=== PATIENT | female | born 1995 | race African-American/Black ===

== ENCOUNTER 2017-04-07 11:26 | Emergency (ER) | payer OTHER ==
[~2017-04-07] VITALS: Ht 168.9 cm; Wt 54.3 kg
[2017-04-07 11:33] VITALS: TEMP 36.7; O2SAT 95; Ht 168.9 cm; Wt 54.3 kg
[2017-04-07] MEDS ORDERED: ACETAMINOPHEN 500 MG TAB PO STA (11:48)
[2017-04-07 12:04] LABS: BASO % 0.3 %; BASO ABS # 0.02 K/uL (0-0.2); COMPLETE YES; EOS % 1.9 %; HEMATOCRIT 35.2 % (37-47); IG% 0.2 %; LYMPH % 35.8 %; LYMPH ABS # 2.07 K/uL (1.2-3.4); MEAN CORPUSCULAR HEMOGLOBIN 31.3 pg (25-34); MEAN CORPUSCULAR HGB CONC 34.4 g/dl (32-36); MEAN PLATELET VOLUME 9.3 fL (7.4-10.4); MONO % 7.8 %; PLATELET COUNT 306 K/uL (130-400); RED BLOOD COUNT 3.87 M/uL (4.2-5.4); WHITE BLOOD COUNT 5.78 K/uL (4.8-10.8)
[2017-04-07 12:14] LABS: PROTHROMBIN TIME (PATIENT) 11.1 SECONDS (9.0-12.0)
[2017-04-07] MEDS ORDERED: SODIUM CHLORIDE 0.9% 1000ML 1,000 ML IV STA (12:14)
--- NOTE | 2017-04-07 12:17 | EMERGENCY ROOM VISIT NOTE ---
History First contact with patient: 11:39 Chief Complaint: ABDOMINAL PAIN Stated Complaint: STOMACH PAIN Nursing Triage Summary: Ambulates to room. Reports vomiting LLQ abd pain, radiating to the back. States started last evening. Denies hx of sickle cell; states brother has it. History of Present Illness The patient is a 21 year old female who presents to the Emergency Room via private vehicle with complaints of "stomach pain". The patient states that she has been coughing 1 week, and last night around 11 PM she began vomiting. She states she is coughing so hard that she is vomiting, and is lightheaded. She states she feels as though she is going to faint. She took DayQuil, without relief. She states that her back also began her, and the left upper quadrant. She notes that it is worse with ambulation. She states that she cannot stand up straight. She denies any chest pain, shortness of breath, fevers or chills. Review of Systems A complete 10-point Review of Systems was discussed with the patient, with pertinent positives and negatives listed in the History of Present Illness. All remaining Review of Systems questions can be considered negative unless otherwise specified. Past Medical/Surgical History No pertinent Family History Brother with Sickle Cell Social History Smoking Status: Never Smoker Pt. lives locally and is a [employer] student Current/Historical Medications Scheduled Cephalexin Monohydrate (Keflex), 500 MG PO TID Physical Exam Vital Signs Date Time Temp Pulse Resp B/P (MAP) Pulse Ox O2 Delivery O2 Flow Rate FiO2 04/07/17 14:40 70 14 108/73 04/07/17 13:30 84 15 110/70 Room Air 04/07/17 12:58 74 04/07/17 12:17 Room Air 04/07/17 11:33 36.7 80 18 113/70 95 Room Air Physical Exam VITAL SIGNS - Vital signs and nursing notes were reviewed. Stable. GENERAL - 21-year-old female appearing her stated age who is in no acute distress. Communicates well with provider and answers questions appropriately. SKIN - Without rashes. HEAD - NC/AT. EYES - PERRL with EOMI bilaterally. Sclera anicteric. EARS - No deformities of external structures noted on gross examination bilaterally. NOSE - Midline and without cyanosis. No epistaxis or purulent drainage noted. . MOUTH/OROPHARYNX - Without perioral cyanosis. Buccal mucosa pink and moist and without leukoplakia. Tongue midline with equal elevation of palate bilaterally. No tonsillar hypertrophy, erythema, or exudates noted. . NECK - Neck with FROM. No meningismus. LUNGS - Chest wall symmetric without accessory muscle use, intercostals retractions, or central cyanosis. Normal vesicular breath sounds CTA B/L. No wheezes, rales, or rhonchi appreciated. CARDIAC - RRR with S1/S2. No murmur, rubs, or gallops appreciated. ABDOMEN - Abdominal contour normal without pulsations or visible masses. BS normoactive all four quadrants. There is left upper quadrant/left anterior inferior rib tenderness. No palpable masses, hepatosplenomegaly, or ascites noted. EXTREMITIES - No clubbing or peripheral cyanosis. No pretibial edema present. + 5/5 strength noted in UE/LE bilaterally. NEUROLOGIC - Cranial nerves II through XII grossly intact. Sensory intact to light touch throughout. PSYCH - A&O, and cooperates fully with examiner. Pt is very pleasant and interacts well with examiner. Medical Decision & Procedures ER Provider Diagnostic Interpretation: CHEST AND ABDOMEN 2 VIEWS HISTORY: Left upper quadrant abdominal pain, emesis COMPARISON: None. FINDINGS: The lungs are clear. The cardiomediastinal silhouette is within normal limits. There is no pneumoperitoneum or pneumatosis. The bowel gas pattern is unremarkable. No evidence for bowel obstruction. No pathologic calcifications. Posterior fusion defect at S1. Moderate well-formed stool seen within the colon. An intrauterine device is seen within the mid pelvis. IMPRESSION: No acute cardiopulmonary process. No evidence for bowel obstruction. Moderate well-formed stool within the colon. Electronically signed by: Michael Fields M.D. 04/07/2017 12:51 PM Dictated Date/Time: 04/07/2017 12:48 PM ULTRASOUND LEFT UPPER QUADRANT ABDOMEN CLINICAL HISTORY: Left upper quadrant abdominal pain. Vomiting. COMPARISON STUDY: Abdominal radiographs dated 04/07/2017. TECHNIQUE: Real-time, grayscale, and color flow sonography of the left upper quadrant of the abdomen is performed. Images are reviewed in the transverse and longitudinal planes. FINDINGS: Spleen: The spleen is normal in size and homogeneous in echotexture measuring 8.9 cm in length. No perisplenic fluid is seen. Left kidney: Survey images of the left kidney showed normal renal size and echotexture. There is no hydronephrosis. No shadowing calculi are identified. No left-sided perinephric fluid is seen. IMPRESSION: Unremarkable sonographic assessment of the left upper quadrant. Electronically signed by: Matt Vázquez M.D. 04/07/2017 12:45 PM Dictated Date/Time: 04/07/2017 12:43 PM Laboratory Results 04/07/17 11:50 Red Blood Count 3.87, Mean Corpuscular Volume 91.0, Mean Corpuscular Hemoglobin 31.3, Mean Corpuscular Hemoglobin Concent 34.4, Mean Platelet Volume 9.3, Neutrophils (%) (Auto) 54.0, Lymphocytes (%) (Auto) 35.8, Monocytes (%) (Auto) 7.8, Eosinophils (%) (Auto) 1.9, Basophils (%) (Auto) 0.3, Neutrophils # (Auto) 3.12, Lymphocytes # (Auto) 2.07, Monocytes # (Auto) 0.45, Eosinophils # (Auto) 0.11, Basophils # (Auto) 0.02 04/07/17 11:50 Test 04/07/17 11:48 04/07/17 11:50 04/07/17 12:00 Urine Test NEG (NEG) White Blood Count 5.78 K/uL (4.8-10.8) Red Blood Count 3.87 M/uL (4.2-5.4) Hemoglobin 12.1 g/dL (12.0-16.0) Hematocrit 35.2 % (37-47) Mean Corpuscular Volume 91.0 fL (80-100) Mean Corpuscular Hemoglobin 31.3 pg (25-34) Mean Corpuscular Hemoglobin Concent 34.4 g/dl (32-36) Platelet Count 306 K/uL (130-400) Mean Platelet Volume 9.3 fL (7.4-10.4) Neutrophils (%) (Auto) 54.0 % Lymphocytes (%) (Auto) 35.8 % Monocytes (%) (Auto) 7.8 % Eosinophils (%) (Auto) 1.9 % Basophils (%) (Auto) 0.3 % Neutrophils # (Auto) 3.12 K/uL (1.4-6.5) Lymphocytes # (Auto) 2.07 K/uL (1.2-3.4) Monocytes # (Auto) 0.45 K/uL (0.11-0.59) Eosinophils # (Auto) 0.11 K/uL (0-0.5) Basophils # (Auto) 0.02 K/uL (0-0.2) RDW Standard Deviation 40.5 fL (36.4-46.3) RDW Coefficient of Variation 12.1 % (11.5-14.5) Immature Granulocyte % (Auto) 0.2 % Immature Granulocyte # (Auto) 0.01 K/uL (0.00-0.02) Prothrombin Time 11.1 SECONDS (9.0-12.0) Prothromb Time International Ratio 1.0 (0.9-1.1) Activated Partial Thromboplast Time 24.9 SECONDS (21.0-31.0) Partial Thromboplastin Ratio 1.0 Anion Gap 5.0 mmol/L (3-11) Est Creatinine Clear Calc Drug Dose 109.0 ml/min Estimated GFR () 143.5 Estimated GFR (Non- 123.9 BUN/Creatinine Ratio 11.3 (10-20) Calcium Level 8.4 mg/dl (8.5-10.1) Magnesium Level 2.1 mg/dl (1.8-2.4) Total Bilirubin 0.5 mg/dl (0.2-1) Aspartate Amino Transf (AST/SGOT) 26 U/L (15-37) Alanine Aminotransferase (ALT/SGPT) 22 U/L (12-78) Alkaline Phosphatase 70 U/L (45-117) Total Creatine Kinase 222 U/L (26-192) Creatine Kinase MB 0.9 ng/ml (0.5-3.6) Creatine Kinase MB Ratio 0.4 (0-3.0) Troponin I < 0.015 ng/ml (0-0.045) Total Protein 7.9 gm/dl (6.4-8.2) Albumin 3.9 gm/dl (3.4-5.0) Globulin 4.0 gm/dl (2.5-4.0) Albumin/Globulin Ratio 1.0 (0.9-2) Lipase 101 U/L (73-393) Thyroid Stimulating Hormone (TSH) 0.478 uIu/ml (0.300-4.500) Monoscreen NEG (NEG) Urine Color YELLOW Urine Appearance CLOUDY (CLEAR) Urine pH 7.0 (4.5-7.5) Urine Specific [place] 1.029 (1.000-1.030) Urine Protein NEG (NEG) Urine Glucose (UA) NEG (NEG) Urine Ketones NEG (NEG) Urine Occult Blood NEG (NEG) Urine Nitrite NEG (NEG) Urine Bilirubin NEG (NEG) Urine Urobilinogen NEG (NEG) Urine Leukocyte Esterase SMALL (NEG) Urine WBC (Auto) 5-10 /hpf (0-5) Urine RBC (Auto) 0-4 /hpf (0-4) Urine Hyaline Casts (Auto) 10-30 /lpf (0-5) Urine Epithelial Cells (Auto) >30 /lpf (0-5) Urine Bacteria (Auto) 1+ (NEG) Medications Administered Medications (Trade) Dose Ordered Sig/Loren Route Start Time Stop Time Status Last Admin Dose Admin Acetaminophen (Tylenol Tab) 500 mg NOW STAT PO 04/07/17 11:48 04/07/17 11:50 DC 04/07/17 12:28 500 MG Sodium Chloride 1,000 ml @ 999 mls/hr Q1H1M STAT IV 04/07/17 12:14 04/07/17 13:14 DC 04/07/17 12:29 999 MLS/HR Medical Decision Patient was seen and evaluated as above. She presents to us today with left upper quadrant abdominal pain, as well as vomiting after she coughs. She's had a cough for the past few weeks. She denies any fevers, chills, chest pain or shortness of breath. Her vital signs are stable. There appear to be no risk factors for pulmonary embolism. At that EKG reveals normal sinus rhythm. No ectopy or ischemic change. test was negative. Chest and abdomen x- ray were negative. Left upper quadrant ultrasound was negative. Spleen was normal size. CBC reveals no concerning leukocytosis, slight anemia noted. Coags normal. Patient's metabolic panel reveals hypocalcemia and hypo-killing him. Total CK was slightly elevated at 222. She was given normal saline. She was encouraged to eat foods high in potassium such as bananas and oranges. Lipase and TSH are negative. Urine feels potential UTI. No nitrates. [place] screen was negative. At this time she appears stable for outpatient management. She is to follow-up with [facility] for further evaluation and management. She was educated upon which to return, had questions answered prior to discharge, and was discharged home in good condition. I did elect to provide her a prescription for Keflex in the event that she may be experiencing a UTI. Culture pending. In the evaluation and treatment of this patient the following differential diagnoses were entertained: RI, PE, UTI, pyelonephritis, splenic infarct, among others. Impression Primary Impression: Left upper quadrant pain Departure Information Dispostion Home / Self-Care Condition GOOD Prescriptions Cephalexin Monohydrate (Keflex) 500 Mg Cap 500 MG PO TID for 7 Days, #21 CAP Prov: Tone Gill PA-C 04/07/17 Referrals No Doctor, Assigned (PCP) [facility] Patient Instructions [facility] Additional Instructions You have been treated in the Emergency Department for a Urinary Tract Infection (UTI) and abdominal pain. You have been prescribed Keflex to be taken every 8 hours for 7 days. This is an antibiotic. All antibiotics have the potential to cause diarrhea. Stop this medication and contact a medical provider if you were to develop any significant adverse side effects including: wheezing, shortness of breath, passing out, vomiting, or a diffuse rash. Always take antibiotics as directed and COMPLETE the ENTIRE course regardless of the improvement of your symptoms. For pain control, you can use the following [id number] medicines: - Regular strength (325mg/tab) Tylenol (acetaminophen) 2 tabs every 4-6 hours as needed. Do not exceed 12 tablets in a 24 hour period. Avoid taking more than 3 grams (3000 mg) of Tylenol per day. This includes any other sources of acetaminophen you may take on a regular basis. - Regular strength (200 mg/tab) Advil (ibuprofen) 1-2 tabs every 4-6 hours as needed. Do not exceed a dose of 3200 mg per day. Return to the emergency department if your symptoms worsen despite treatment course outlined above. Drink plenty of water and stay well hydrated. As with any trip to the Emergency Department, you should follow-up with your Primary Care Provider from today's visit. Return to the emergency department if your symptoms persist despite treatment plan outlined above or if the following symptoms occur: increased fevers, chills , low back pain, nausea/vomiting, or blood in your urine.
[2017-04-07 12:21] LABS: ALT/SGPT 22 U/L (12-78); BLOOD UREA NITROGEN 8 mg/dl (7-18); BUN/CREATININE RATIO 11.3 (10-20); CALCIUM 8.4 mg/dl (8.5-10.1); CARBON DIOXIDE 28 mmol/L (21-32); CHLORIDE 107 mmol/L (98-107); GLUCOSE 86 mg/dl (70-99); MAGNESIUM 2.1 mg/dl (1.8-2.4); POTASSIUM 3.4 mmol/L (3.5-5.1); SODIUM 140 mmol/L (136-145)
[2017-04-07 12:26] LABS: ALKALINE PHOSPHATASE 70 U/L (45-117); AST/SGOT 26 U/L (15-37); CKMB/CK RATIO 0.4 (0-3.0)
[2017-04-07 12:35] LABS: URINE APPEARANCE CLOUDY (CLEAR); URINE BILIRUBIN NEG (NEG); URINE COLOR YELLOW; URINE EPITHELIAL CELL AUTO >30 /lpf (0-5); URINE NITRITE NEG (NEG); URINE SPECIFIC GRAVITY 1.029 (1.000-1.030); UROBILINOGEN NEG (NEG); ZZUR CULT IF INDIC CLEAN CATCH YES
[2017-04-07 12:39] LABS: MANUAL MICROSCOPIC REQUIRED? NO; REVIEW REQ? NO
--- NOTE | 2017-04-07 12:46 | DIAGNOSTIC IMAGING REPORT ---
ULTRASOUND LEFT UPPER QUADRANT ABDOMEN CLINICAL HISTORY: Left upper quadrant abdominal pain. Vomiting. COMPARISON STUDY: Abdominal radiographs dated 04/07/2017. TECHNIQUE: Real-time, grayscale, and color flow sonography of the left upper quadrant of the abdomen is performed. Images are reviewed in the transverse and longitudinal planes. FINDINGS: Spleen: The spleen is normal in size and homogeneous in echotexture measuring 8.9 cm in length. No perisplenic fluid is seen. Left kidney: Survey images of the left kidney showed normal renal size and echotexture. There is no hydronephrosis. No shadowing calculi are identified. No left-sided perinephric fluid is seen. IMPRESSION: Unremarkable sonographic assessment of the left upper quadrant. Electronically signed by: Matt Vázquez M.D. 04/07/2017 12:45 PM Dictated Date/Time: 04/07/2017 12:43 PM
--- NOTE | 2017-04-07 12:52 | DIAGNOSTIC IMAGING REPORT ---
CHEST AND ABDOMEN 2 VIEWS HISTORY: Left upper quadrant abdominal pain, emesis COMPARISON: None. FINDINGS: The lungs are clear. The cardiomediastinal silhouette is within normal limits. There is no pneumoperitoneum or pneumatosis. The bowel gas pattern is unremarkable. No evidence for bowel obstruction. No pathologic calcifications. Posterior fusion defect at S1. Moderate well-formed stool seen within the colon. An intrauterine device is seen within the mid pelvis. IMPRESSION: No acute cardiopulmonary process. No evidence for bowel obstruction. Moderate well-formed stool within the colon. Electronically signed by: Michael Fields M.D. 04/07/2017 12:51 PM Dictated Date/Time: 04/07/2017 12:48 PM
[2017-04-07] MEDS ORDERED: CEPH500C PO (14:07)
[2017-04-07 14:40] VITALS: BP 108/73; PULSE 70
== END 2017-04-07 14:40 | disposition home or self-care (01) ==
LOC: C.EDB 11:28 → C.EDC 14:40
DX: R10.12 Left upper quadrant pain (principal)